=== PATIENT | female | born 1965 | race Caucasian/White ===

== ENCOUNTER 2022-10-20 20:46 | Emergency (ER) | payer BC ==
[~2022-10-20] VITALS: Ht 160 cm; Wt 75.0 kg
[2022-10-20 21:06] VITALS: TEMP 97.5
[2022-10-20 22:04] LABS: BASO # 0.1 K/mm3 (0.0-0.2); BASO % 0.4 % (0.0-2.0); EOS % 0.3 % (0.0-4.0); GRAN # 11.8 K/mm3 (1.4-6.5); GRAN % 85.8 % (42.2-75.2); HEMATOCRIT 41.6 % (37.0-47.0); HEMOGLOBIN 14.4 g/dl (12.5-16.0); LYMPH # 0.5 K/mm3 (1.2-3.4); LYMPH % 3.8 % (20.0-51.0); MEAN CELL VOLUME 93 fl (80.0-100.0); MEAN CORPUSCULAR HEMOGLOBIN 32 pg (27-31); MEAN CORPUSCULAR HGB CONC 35 g/dl (33.0-37.0); MEAN PLATELET VOLUME 10.3 fl (7.4-10.4); MONO # 1.3 K/mm3 (0.1-0.6); MONO % 9.3 % (1.7-9.3); PLATELET COUNT 125 K/mm3 (130-400); RED BLOOD COUNT 4.48 M/mm3 (4.10-5.30); REDCELL DISTRIBUTION WIDTH-CV 13.3 % (11.5-14.5)
[2022-10-20 22:20] LABS: ALBUMIN 4.4 gm/dL (3.5-5.0); C-REACTIVE PROTEIN 0.44 mg/dL (0.00-0.50); CREATININE, serum 1.26 mg/dL (0.57-1.11); POTASSIUM 3.7 mmol/L (3.5-4.5); TOTAL PROTEIN 6.9 gm/dL (6.2-8.1)
[2022-10-20 22:29] LABS: BILIRUBIN,TOTAL 0.5 mg/dL (0.2-1.2)
[2022-10-20 22:55] LABS: COLLECTION METHOD CLEAN CATCH
[2022-10-20 23:06] LABS: URINE APPEARANCE Clear (CLEAR/HAZY); URINE BLOOD Negative (NEGATIVE); URINE COLOR Yellow (YELLOW); URINE GLUCOSE Negative (NEGATIVE); URINE KETONE Negative (NEGATIVE); URINE NITRATE Negative (NEGATIVE); URINE PROTEIN(semi-quant) Negative (NEGATIVE); URINE UROBILINOGEN 0.2 E.U/dL (0.2-1.0)
[2022-10-20 23:20] LABS: MUCOUS Present (NOT PRESENT); SQUAMOUS EPITHELIAL 0-2 /hpf (0-10); URINE BACTERIA Rare /hpf (NONE SEEN)
[2022-10-21] MEDS ORDERED: CEPHALEXIN500 M1 PO (02:01)
[2022-10-21 02:18] VITALS: BP 116/62; PULSE 61
== END 2022-10-21 02:25 | disposition home or self-care (01) ==
LOC: COL.ER 20:46
PROVIDERS: Nurse Practitioner
DX: R11.2 Nausea with vomiting, unspecified (principal); R19.7 Diarrhea, unspecified; R10.10 Upper abdominal pain, unspecified; N39.0 Urinary tract infection, site not specified
CPT/HCPCS: J0696; J0780; J7030; Q9967